=== PATIENT | male | born 1965 | race Caucasian/White ===

== ENCOUNTER 2018-10-21 22:34 | Outpatient (CLI) | payer OTHER | END 2018-10-21 22:35 | disposition short-term general hospital (02) | LOC: EMS 22:34 | PROVIDERS: ATTEND Surgery | DX: R07.9 Chest pain, unspecified (principal) | CPT/HCPCS: A0425; A0427 ==

== ENCOUNTER 2019-07-18 18:39 | Outpatient (CLI) | payer OTHER | END 2019-07-18 18:40 | disposition short-term general hospital (02) | LOC: EMS 18:39 | PROVIDERS: ATTEND Surgery | DX: R55 Syncope and collapse (principal) | CPT/HCPCS: A0425; A0427 ==